=== PATIENT | female | born 1980 | race Caucasian/White ===

== ENCOUNTER 2021-09-14 11:06 | Outpatient (CLI) | payer MEDICAID, SELFPAY ==
--- NOTE | 2021-09-14 11:27 | US_ITS ---
STUDY: ULTRASOUND OF THE FEMALE PELVIS - COMPLETE REASON FOR EXAM: Female, 41 years old. Abnormal uterine bleeding. LMP: 09/08/2021 TECHNIQUE: Transabdominal and Transvaginal TECHNICAL QUALITY: Adequate. COMPARISON: None. FINDINGS: The uterus is retroverted and is in a midline position. The uterus measures 8.1 cm x 6.5 cm x 5.2 cm. There is a Nabothian cyst of the cervix. The endometrium measures 11.9 mm in thickness, and is heterogeneous (striated). There is no demonstrated endometrial mass. 3 uterine fibroids are seen. The largest measures 3.2 cm x 3.2 size by 2.7 cm. I.U.D. - The patient does not have an I.U.D. The right ovary is visualized. The right ovary measures 3.2 cm x 2.6 cm x 1.6 cm. Follicles are seen within the ovary. There is no visualized right adnexal mass or complex lesion. There is normal arterial and normal venous vascularity. The left ovary is visualized. The left ovary measures 2.5 cm x 2 cm x 1.6 cm. Left ovarian follicles are seen. There is no visualized left adnexal mass or complex lesion. There is normal arterial and normal venous vascularity. There is no fluid in the cul-de-sac. The pre void volume of the bladder was for 41 ml. US/Transvaginal Non- IMPRESSION: Fibroid uterus. Follicles are seen in both ovaries. Electronically Signed: Jeffry Franco MD at 13:58 EST ,
--- NOTE | 2021-09-14 11:27 | US_ITS ---
STUDY: ULTRASOUND OF THE FEMALE PELVIS - COMPLETE REASON FOR EXAM: Female, 41 years old. Abnormal uterine bleeding. LMP: 09/08/2021 TECHNIQUE: Transabdominal and Transvaginal TECHNICAL QUALITY: Adequate. COMPARISON: None. FINDINGS: The uterus is retroverted and is in a midline position. The uterus measures 8.1 cm x 6.5 cm x 5.2 cm. There is a Nabothian cyst of the cervix. The endometrium measures 11.9 mm in thickness, and is heterogeneous (striated). There is no demonstrated endometrial mass. 3 uterine fibroids are seen. The largest measures 3.2 cm x 3.2 size by 2.7 cm. I.U.D. - The patient does not have an I.U.D. The right ovary is visualized. The right ovary measures 3.2 cm x 2.6 cm x 1.6 cm. Follicles are seen within the ovary. There is no visualized right adnexal mass or complex lesion. There is normal arterial and normal venous vascularity. The left ovary is visualized. The left ovary measures 2.5 cm x 2 cm x 1.6 cm. Left ovarian follicles are seen. There is no visualized left adnexal mass or complex lesion. There is normal arterial and normal venous vascularity. There is no fluid in the cul-de-sac. The pre void volume of the bladder was for 41 ml. US/Pelvic (Non ) IMPRESSION: Fibroid uterus. Follicles are seen in both ovaries. Electronically Signed: Jeffry Franco MD at 13:58 EST ,
== END 2021-09-14 23:59 | disposition home or self-care (01) ==
PROVIDERS: PCP Family Medicine; Referring Provider Urology; Visit Provider Urology
DX: N93.9 Abnormal uterine and vaginal bleeding, unspecified (principal); N83.01 Follicular cyst of right ovary; N83.02 Follicular cyst of left ovary; D25.9 Leiomyoma of uterus, unspecified
CPT/HCPCS: 76830; 76856

== ENCOUNTER 2021-10-06 15:18 | Outpatient (CLI) | payer MEDICAID, SELFPAY ==
--- NOTE | 2021-10-06 11:30 | EMB_PTH ---
PATIENT: JERRI JOEL LOC: [facility] U#:[id number] AGE/SX: 41/F ROOM: RE10/06/[address]: Dr. Amanda Reza DO : 1980 BED: DIS: 10/06/2021 SPEC #: [id number] RECD: 10/06/21 14:49 STATUS: JOSE AWAN #: [id number] SAURABH: 10/06/21 11:[address]: Amanda Reza DEPT: SURGICAL PATHOLOGY RECD BY: Shell Estrada ENTERED: 10/07/21 08:54 SP TYPE: ENDOM BX/C JUMA DR: Dr. Prasanth Tay MD Tissues: Endometrium, NOS Procedures: Surgery Specimen Level IV HEADER OPERATION: Endometrial biopsy PRE-OP DIAGNOSIS: Abnormal uterine bleeding TISSUE SUBMITTED: Endometrial lining MICROSCOPIC DIAGNOSIS Endometrium, biopsy: Secretory endometrium. AM:gita 10/10/2021 MICROSCOPIC DESCRIPTION Slides are reviewed. GROSS DESCRIPTION Received is one container labeled with the patient's name and not further designated. The specimen consists of multiple irregular fragments of borja tissue that in aggregate measure 2.2 x 2 x 0.2 cm. The specimen is totally submitted in one cassette. / AM:gita 10/07/2021 TC:5 CPT: 12067
== END 2021-10-06 23:59 | disposition home or self-care (01) ==
LOC: LABSPEC 15:26
PROVIDERS: PCP Family Medicine; Visit Provider Obstetrics & Gynecology
DX: N93.9 Abnormal uterine and vaginal bleeding, unspecified (principal)
CPT/HCPCS: 88305

== ENCOUNTER 2021-10-21 09:29 | Day surgery (SDC) | payer MEDICAID, SELFPAY ==
--- NOTE | 2021-10-18 16:24 | EKG12_ITS ---
Test Reason : PREOP Blood Pressure : / mmHG Vent. Rate : 079 BPM Atrial Rate : 079 BPM P-R Int : 136 ms QRS Dur : 082 ms QT Int : 404 ms P-R-T Axes : 051 026 016 degrees QTc Int : 463 ms Normal sinus rhythm Normal ECG Confirmed by CHAVEZ URBANO, CARO ([id number]), film or videotape editor MAHESH FERRARI ([id number]) on 10/19/2021 1:37:48 PM Referred By: UMA FRANCIS Confirmed By:CARO BYRNE MD
[2021-10-18 16:49] LABS: Hematocrit 42.6 % (37-47); Hemoglobin 14.9 g/dL (12.0-15.0); Mean Corpuscular Hgb 30.1 pg (27.0-32.0); Mean Corpuscular Volume 86.1 fL (81-99); Mean Platelet Vol. 10.3 fl (6.2-12.0); Platelet Count 243 K/mm3 (150-450); RBC Distribution Width CV 12.8 % (11.6-14.6); RBC Distribution Width SD 39.5 fl (35.1-43.9); Red Blood Count 4.95 M/mm3 (4.2-5.4); White Blood Count 8.3 K/mm3 (4.4-11.0)
[2021-10-18 17:22] LABS: Magnesium 2.1 mg/dL (1.6-2.6)
--- NOTE | 2021-10-20 09:20 | PCM.HP.BLA ---
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 Amanda Reza DO) Malignant lymphoma of thyroid gland Migraine Unspecified asthma Surgical History (Updated 10/06/21 @ 11:[address] Amanda Reza DO) H/O tubal ligation History of abdominoplasty History of tonsillectomy Prolapse of bladder Status post breast reduction Family History (Updated 10/06/21 @ 11:11 by Stephenie Brambila) Grandmother Hypertension Diabetes Grandfather Hypertension Father Diabetes Social History (Updated 10/06/21 @ 11:11 by Stephenie Brambila) Smoking Status: Never smoker alcohol intake: never substance use type: does not use caffeine: No what type of physical activity do you participate in: walking seatbelt use: always do you feel safe at home: Yes additional social history: [facility]ACEY REFERRAL Details: JERRI JOEL is a 41 year old (all vaginal deliveries) who presents for discussion about hysterectomy. She states that her menses are heavy and painful and she is not interested in control or an ablation. She had a tubal ligation at the time of her tummy tuck and she is from her . She is a thyroid cancer survivor. Her past history is significant for 2 prior midurethral sling procedures and a third bladder tack. She states that the first sling broke and it was replaced. Pregancy History 3 Elective abortions Hx Para 3 Spontaneous abortions Hx # Term Pregnancies Ectopic pregnancies Hx # Pregnancies Multiple births # of living children Past Pregnancies Del. Date Name GA/Weeks Outcome Route Bth Weight [facility]ant [facility] F[facility] Unknown Shalini Unknown Irasema Unknown Dalila ROS Const ROS Unobtainable: All systems reviewed & are unremarkable except as noted in H Resp Resp: Reports system reviewed and no additional complaints, except as documented; Denies cough GI GI: Reports as per HPI Psych Psych: Reports system reviewed and no additional complaints, except as documented Exam Const General: cooperative, healthy appearing, comfortable and no acute distress Resp Effort & Inspection: normal respiratory effort General: bimanual renal exam normal bilaterally External Female Exam: normal appearance of the urethra Urethra: normal appearance of the urethra Speculum Exam - Vagina: normal appearance of the vagina Speculum Exam - Cervix: normal appearance of the cervix Bimanual Exam- Adnexa, other: normal adnexae and normal Pelvic Support: normal Skin General: no rashes or lesions noted Psych Appearance: grossly normal Speech and Movement: speech and movement normal Office Procedures Endometrial Biopsy Endometrial Biopsy Test: Yes declined Time out checklist: patient tenaculum used: No dilator used: No Details: Cervix prepped with betadine and pipelle inserted into uterus without complication. Specimen obtained and sent to lab for analysis. All instruments removed from vagina without complications. Excellent hemostasis noted. Coding Level of Care Code Off vis,new,level 5 Diagnoses Abnormal uterine bleeding N93.9 Prolapse of bladder History of abdominoplasty Z98.890 H/O tubal ligation Z98.51 CPT Codes Endometrial Biopsy (74134) Assessment and Plan Assessment and Plan (1) Abnormal uterine bleeding: Status: Acute (2) Prolapse of bladder: Status: Inactive Comment: bladder sling x3 (3) History of abdominoplasty: Status: Inactive (4) H/O tubal ligation: Status: Inactive Orders: Orders: Endometrial Biopsy Today N93.9 Plan - Dr. Amanda Reza, DO: pt is a candidate for robotic hysterectomy due to scar tissue and lack of uterine descent. However there is risks of bladder injury with need for post op fierro x up to 10 days discussed due to multiple surgeries. She understands and is willing to take this risk. EMB benign Dr. Gillette does not recommend further sling procedures due to risks UPDATE- I have seen the patient and performed any clinically relevant updates to the history and physical exam. Amanda Reza, DO
[2021-10-21] VITALS (11 sets, daily range): BP systolic 83–117; BP diastolic 48–89; PULSE 51–65; RESP 16; TEMP 36.2–36.5; O2SAT 16–100; BMI 43.2
--- NOTE | 2021-10-21 | HYST_PTH ---
PATIENT: JERRI JOEL [place] [facility] [place][id number] AGE/SX: 41/F ROOM: RE10/21/[address]: Dr. Amanda Reza DO : 1980 BED: DIS: 10/21/2021 SPEC #: [id number] RECD: 10/21/21 15:45 STATUS: JOSE AWAN #: [id number] SAURABH: 10/21/21 00:[address]: Amanda Reza DEPT: SURGICAL PATHOLOGY RECD BY: Shell Estrada ENTERED: 10/24/21 12:22 SP TYPE: HYSTERECT OTHR DR: Dr. Prasanth Tay MD Tissues: Uterus, NOS Procedures: Surgery Specimen Level V HEADER OPERATION: ERAS, total robotic hysterectomy with cystoscopy PRE-OP DIAGNOSIS: Abnormal uterine bleeding TISSUE SUBMITTED: Uterus, cervix MICROSCOPIC DIAGNOSIS Uterus, hysterectomy: Cervix ? nabothian cysts and minimal chronic inflammation. Endometrium ? proliferative endometrium. Myometrium ? leiomyomas. Right fallopian tube - no pathologic change. Left fallopian tube - no pathologic change. AM:gita 10/25/2021 MICROSCOPIC DESCRIPTION Slides are reviewed. GROSS DESCRIPTION Received in fixative is one container labeled with the patient's name and designated uterus. The specimen consists of a uterus with attached cervix and attached right and left fallopian tubes. The uterus with cervix measures 11.8 x 7 x 7 cm and weighs 165 gm. The ectocervix is unremarkable. The cervical os is oval in contour. The endocervical canal measures 3.5 cm in length and is grossly unremarkable. The elongated endometrial cavity measures 4.5 x 3 cm. The endometrium is glistening, light borja and measures up to 0.3 cm in thickness. The myometrium measures 2.8 cm in average thickness and is distorted by multiple rubbery nodules ranging in size from 1 to 2.6 cm. The nodules? cut surface has a whorled appearance and are grossly consistent with leiomyomas. The right fallopian tube measures 5 cm in length and 0.7 cm in average diameter. The fimbrial end contains a smooth, glistening cyst measuring 0.8 cm and containing clear fluid. The left fallopian tube measures 7 cm in length and 0.8 cm in average diameter. [employer] [place] sections are submitted in 11 cassettes as follows: 1 - anterior cervix, 2??posterior cervix, 3 & 4 - anterior uterine wall, 5 & 6 - posterior myometrial wall, 7 - largest myometrial mass, 8 - second largest myometrial mass, 9 - third largest myometrial mass, 10 - right fallopian tube and paratubal cyst, 11 - left fallopian tube. / AM:gita 10/24/2021 TC:1 CPT: 19193
[2021-10-21] MEDS: Acetaminophen 500 MG Tablet 1000 MG PO (10:31)
[2021-10-21] MEDS: Lactated Ringers 1,000 ML 40 ML IV (10:31)
[2021-10-21] MEDS: dexAMETHasone 10 MG/ML Vial 8 MG IV (10:32)
[2021-10-21] MEDS: Gabapentin 600 MG Tablet PO (10:32)
[2021-10-21] MEDS: Celecoxib 200 MG Capsule 400 MG PO (10:32)
[2021-10-21 10:45] LABS: Bedside Glucose 98 mg/dL (74-106)
--- NOTE | 2021-10-21 12:10 | SUR.PREOP ---
mag shon at 1030, per dr parker at 1050, stop mag d/t mag levels.
--- NOTE | 2021-10-21 12:25 | PCM.DC ---
Discharge Instructions Diet Discharge Diet: Light diet - advance as tolerated Activity Discharge Activity: May Not Drive May resume sexual activity in: 8 weeks Weight Bearing Status: Weight bearing as tolerated Dressing / Incision Call your doctor if your incision/area has: Sudden Increased Bleeding, Foul Smelling Discharge and - (Sudden increase in pain ) Call your doctor if you observe: Fever of 101 or Higher, Inability to urinate, Shortness of breath, Dizziness, Chest pain, Calf discomfort and Uncontrolled pain Change Dressing in: leave in place till F/U Cleanse incision/area with: Keep Dressing Clean & Dry Follow Up Care Please Follow Up With: Amanda Reza DO When: 2 weeks Test Results: Test results from this visit will be discussed in further detail at your follow-up appointment, if applicable. Discharge Plan Admission Primary Reason for Your Visit: hysterectomy Attending Provider: Amanda Reza Primary Care Provider: Prasanth Tay Discharge Orders/Prescriptions Prescriptions: New docusate sodium [Colace] 100 mg capsule 100 mg PO DAILY 14 Days Qty: 14 RF: 0 ibuprofen 800 mg tablet 800 mg PO Q8H PRN (Reason: pain) 7 Days Qty: 30 RF: 0 oxycodone-acetaminophen [Percocet] 5-325 mg tablet 1 tab PO Q4H PRN (Reason: pain) 7 Days Qty: 30 RF: 0 ondansetron 4 mg tablet,disintegrating 4 mg PO Q8H PRN (Reason: nausea and vomiting) 7 Days Qty: 30 RF: 0 Continued levothyroxine 137 mcg capsule 137 mcg PO DAILY RF: 0 fluoxetine [Prozac] 10 mg capsule 20 mg PO DAILY RF: 0 albuterol sulfate 90 mcg/actuation aerosol powdr breath activated 2 inh inhalation Q6H PRN (Reason: Wheezing) RF: 0 Other Ambulatory Orders: 12 Lead EKG (Routine) Location: None Selected Ordered By: Dr. Elder Rodríguez Referrals / Follow Up: Prasanth Tay MD [Primary Care Provider] - Disposition Disposition (needs filled in before D/C Order can be placed): Home, Self Care
[2021-10-21] MEDS: Cefazolin 2 GM in 0.9% Normal Saline 100 ML IV (12:30)
--- NOTE | 2021-10-21 12:36 | PCM.OPRPT ---
Problems Associated Problem List Diagnoses (1) Abnormal uterine bleeding: Report of Operation Date of Procedure: 10/21/21 Pre-Operative Diagnosis: menorrhagia, history of several abdominal surgeries Post-Operative Diagnosis: menorrhagia, history of several abdominal surgeries Surgery/Procedure Performed:: total robotic hysterectomy, bilateral salpingectomy, cystoscopy Surgeon: Amanda Reza storage center manager: Anna Type of Anesthesia: General Specimen's removed: uterus, cervix, bilateral fallopian tubes Estimated Blood Loss (mL): 50cc Fluids Replaced: 1200 Description of Procedure: Procedure: Total robotic hysterectomy bilateral salpingectomy and cystoscopy Anesthesia: General endotracheal intubation Estimated blood loss: 50cc Urine output:225cc Drains: None Implanted material: None Complications: None Findings: 11 cm size uterus, normal appearing ovaries and tubes. On exploration of the abdominal cavity the uterus, adnexa, bowel, and liver were found to be normal. Cystoscopy showed no evidence of leaking at approximately 250 cc of normal saline, positive ureteral orifices and jet flow are seen and no suture material was appreciated in the bladder. Specimens removed: Uterus and cervix, Bilateral fallopian tubes Reason for surgery: This is a 41-year-old who presented to my office from long history of menorrhagia and fibroid uterus. The planned procedure is for a robotic hysterectomy the risks benefits and alternatives were discussed with the patient the patient had a clear understanding of the procedure and a consent form was signed. Procedure: The patient was placed in the dorsal low lithotomy position and prepped and draped in the normal sterile fashion both abdominally and in the perineum. Her legs were placed in stirrups a Matt catheter was inserted into the urethra without difficulty. A weighted speculum was placed in the vagina and a single-tooth tenaculum was used to grasp the anterior lip of the cervix. A uterine manipulator was inserted through the cervix without complication. It was then tied into place at the 2 and 10:00 locations on the cervix. Gloves were changed and attention was turned towards the abdomen. Approximately 23 cm above the pubic symphysis in the midline, and after Marcaine injection, a 8 mm incision was made. An 8 mm trocar was inserted through the laparoscope, then inserted into the abdomen under direct visualization using the laparoscope. Good abdominal placement was noted and no complications were appreciated. An air seal device was utilized to create pneumoperitoneum. At 12 cm lateral to the midline on the left and right sides 8 mm accessory ports were placed. Next a left upper quadrant 8 mm client account assistant port site was placed. The patient was placed in steep Trendelenburg position. The robot was docked. The hysterectomy was initiated first by taking down the fallopian tubes and round ligaments on each side using the vessel sealer device. The broad ligament was then and taken down using the vessel sealer device. Next the bladder flap was taken down without complication. This was done using monopolar cautery to the level of the cervical vaginal junction. After the bladder flap was created, uterine vessels were then isolated and cauterized using the vessel sealer device and EndoShears. At this point the uterine vessels were taken down further starting from the ascending branch, dissecting along the edges of the cervix to the level of the cervical vaginal junction with hemostasis appreciated. The cervical vaginal junction was then using monopolar cautery in a circumferential pattern across the superior aspect of the cervix. The specimen was delivered through the vagina and sent to pathology. The remaining vaginal cuff was then closed using OV lock suture. This was performed in a running technique with 2 layers. Excellent hemostasis was obtained and good closure was noted. Irrigation was then performed. All operative sites were noted to be hemostatic. A cystoscopy was performed with a 70 degree cystoscope through the urethra into the bladder without complication. The bladder was instilled with approximately 250 cc of normal saline. Intraoperative images were made. Ureteral orifices and jets were identified. No suture material was appreciated in the bladder. The bladder was then drained and cystoscope was removed. The abdominal cavity was again examined using the laparoscope after the robot was undocked. All operative sites were noted to be hemostatic. The trochars were removed under direct visualization without complication and pneumoperitoneum was reduced. At this point the skin was then closed using 4-0 Monocryl subcuticular stitch and sealed with surgical glue. The patient tolerated the procedure well sponge lap and needle counts were correct x2 the patient was taken to the recovery room in stable condition. Admit VTE Documentation VTE Present on Admission: Yes VTE Mechan Device Prophylaxis: SCD's VTE Pharm Prophylaxis ordered?: No Reason prophylaxis not ordered:: Procedure Not Indicated Multi Select Codes Urinary/Genital Urinary/Genital CPT Codes: 34137 TLH+BS/O <250gr uterus (total robotic hysterectomy )
[2021-10-21] MEDS: Bupivacaine 0.25% 30 ML Vial (12:45)
[2021-10-21] MEDS: Lactated Ringers 1,000 ML 100 ML IV (13:15)
[2021-10-21] MEDS: Ondansetron 4 MG/2 ML Vial IV (14:00)
[2021-10-21] MEDS: HYDROcodone Bitartrate/Apap 5/325 Tablet PO (17:28)
== END 2021-10-21 23:59 | disposition home or self-care (01) ==
LOC: SDC 09:30 → AC 09:31
PROVIDERS: Anesthesiology; PCP Family Medicine; Referring Provider Obstetrics & Gynecology; Visit Provider Obstetrics & Gynecology
PROC: 0UT94ZZ Resection of Uterus, Percutaneous Endoscopic Approach (ICD-10-PCS; CPT 58571; principal; 2021-10-21 11:10)
DX: N93.9 Abnormal uterine and vaginal bleeding, unspecified (principal); N92.0 Excessive and frequent menstruation with regular cycle; N88.8 Other specified noninflammatory disorders of cervix uteri; D25.9 Leiomyoma of uterus, unspecified; E89.0 Postprocedural hypothyroidism; F32.A Depression, unspecified; F41.9 Anxiety disorder, unspecified; Z98.51 Tubal ligation status; Z98.890 Other specified postprocedural states; Z79.899 Other long term (current) drug therapy; Z20.822 Contact with and (suspected) exposure to COVID-19
CPT/HCPCS: 58571; S2900; 00840; 36415; 82962; 83735; 84443; 85027; 86850; 86900; 86901; 87426; 88307; 93005; C9803; J7120; J2405